=== PATIENT | male | born 1950 | race Caucasian/White ===

== ENCOUNTER → 2018-05-20 | Outpatient (CLI) | payer MEDICARE | END | disposition home or self-care (01) | LOC: CFH 07:37 | PROVIDERS: ATTEND Internal Medicine Cardiovascular Disease | DX: I25.10 Atherosclerotic heart disease of native coronary artery without angina pectoris (principal); I10 Essential (primary) hypertension; Z95.5 Presence of coronary angioplasty implant and graft; R94.31 Abnormal electrocardiogram [ECG] [EKG] | CPT/HCPCS: 78452; 93017; A9502 ==

== ENCOUNTER 2020-11-17 12:52 | Inpatient (IN) | payer MEDICARE ==
[~2020-11-17] VITALS: Ht 175.3 cm; Wt 81.7 kg
--- NOTE | 2020-11-17 13:32 | NUR ---
PT WITH SUBSTERNAL CP, RADIATES TO LEFT CHEST, TIGHTNESS OVER PAST COUPLE OF DAYS. ALL MONITORS PLACED, BP ELEVATED AT 198/114. DR ABRAHAM AT BEDSIDE. PT ASSESSMENT, POC DISCUSSED AND QUESTIONS ANSWERED.
[2020-11-17 13:52] LABS: BASOPHILS % (AUTO) 1 % (0-1); EOSINOPHILS % (AUTO) 2 % (1-7); LYMPHOCYTES % (AUTO) 25 % (22-44); MEAN CORPUSCULAR HEMOGLOBIN 33.7 pg (27.5-34.5); MEAN CORPUSCULAR HGB CONC 34.4 g/dL (33.2-36.2); MEAN PLATELET VOLUME 9.9 fL (7.4-10.4); MONOCYTES % (AUTO) 9 % (2-9); NEUTROPHILS % (AUTO) 64 % (42-75); PLATELET COUNT 191 x10^3/uL (130-400); RED BLOOD COUNT 4.91 x10^6/uL (4.38-5.82); RED CELL DISTRIBUTION WIDTH 14.1 % (9.4-14.8)
[2020-11-17] MEDS ORDERED: LABETALOL 5MG/ML, 20ML ONE (13:52)
[2020-11-17] MEDS ORDERED: MAALOX/HYOSCYAMINE/LIDOCAINE 45 ML BTL ONE (13:52)
[2020-11-17] MEDS ORDERED: SODIUM CHLORIDE FLUSH 10ML SYR IVF ONE (14:00)
[2020-11-17] MEDS ORDERED: MAALOX/HYOSCYAMINE/LIDOCAINE 45 ML BTL PO ONE (14:00)
[2020-11-17] MEDS ORDERED: LABETALOL 5MG/ML, 20ML IVPush ONE (14:00)
[2020-11-17 14:03] LABS: ALANINE AMINOTRANSFERASE 40 U/L (12-78); ALBUMIN 3.7 g/dL (3.4-5.0); ANION GAP 4 mmol/L (5-15); CALCIUM 8.7 mg/dL (8.5-10.1); CHLORIDE 105 mmol/L (98-107); CREATININE 1.34 mg/dL (0.7-1.3)
[2020-11-17 14:08] LABS: ALKALINE PHOSPHATASE 86 U/L (45-117); BILIRUBIN,TOTAL 0.7 mg/dL (0.2-1.0); TOTAL PROTEIN 7.5 g/dL (6.4-8.2); TROPONIN I 0.017 ng/mL (0.000-0.045)
--- NOTE | 2020-11-17 14:40 | NUR ---
ERP AT BS
[2020-11-17] MEDS ORDERED: NITROGLYCERIN OINT 2%, 1GM TP ONE ×2 (14:59→15:00)
--- NOTE | 2020-11-17 15:07 | NUR ---
PT TO BR WITH UPRIGHT STEADY GAIT, BACK TO ROOM W/O INCIDENCE. PT MEDICATED PER EMAR. NADN/VSS. CALL LIGHT WITHIN REACH. NO NEEDS AT THIS TIME
[2020-11-17] MEDS ORDERED: METO25TA35 PO (15:21)
[2020-11-17] MEDS ORDERED: ATOR-2 PO (15:21)
[2020-11-17] MEDS ORDERED: ASPI-963 PO (15:21)
[2020-11-17] MEDS ORDERED: ENAL5TAB10 PO (15:21)
[2020-11-17] MEDS ORDERED: AMLO2.5T5 PO (15:21)
[2020-11-17] MEDS ORDERED: EZET10TA70 PO (15:21)
[2020-11-17] MEDS ORDERED: ACETAMINOPHEN 325 MG TABLET PO PRN (15:30)
[2020-11-17] MEDS ORDERED: HEPARIN 5,000 UNITS/ML, 1ML SQ SCH (15:30)
[2020-11-17] MEDS ORDERED: ENALAPRILAT 1.25 MG/ML, 2ML IVPush PRN (15:30)
[2020-11-17] MEDS ORDERED: morphine SULFATE 10 MG/ML, 1ML IVPush PRN (15:30)
[2020-11-17] MEDS ORDERED: SODIUM CHLORIDE FLUSH 10ML SYR IVF PRN (15:30)
[2020-11-17] MEDS ORDERED: LABETALOL 5MG/ML, 20ML IVPush PRN (15:30)
[2020-11-17] MEDS ORDERED: ONDANSETRON 2MG/ML, 2ML IVPush PRN (15:30)
[2020-11-17] MEDS ORDERED: HEPARIN 5,000 UNITS/ML, 1ML ONE (15:34)
--- NOTE | 2020-11-17 15:48 | NUR ---
Pt to be admitted to [facility], room 513. Report called to IZABEL.
[2020-11-17 16:15] LABS: TROPONIN I 0.398 ng/mL (0.000-0.045)
[2020-11-17 16:32] VITALS: BP 142/84
[2020-11-17 16:50] VITALS: BP 142/84
[2020-11-17] MEDS ORDERED: HEPARIN 5,000 UNITS/ML, 1ML IV PRN (17:30)
[2020-11-17] MEDS ORDERED: HEPARIN 25,000 UNITS/250ML PMX 250 ML IV PRN (17:30)
[2020-11-17] MEDS ORDERED: HEPARIN 5,000 UNITS/ML, 1ML IV ONE (17:30)
[2020-11-17 20:46] VITALS: BP 115/65
[2020-11-17] MEDS: ATORVASTATIN 80 MG TABLET PO SCH (20:52)
[2020-11-18 01:28] VITALS: BP 98/59
[2020-11-18 06:50] LABS: BASOPHILS % (AUTO) 1 % (0-1); EOSINOPHILS % (AUTO) 1 % (1-7); LYMPHOCYTES % (AUTO) 21 % (22-44); MEAN CORPUSCULAR HEMOGLOBIN 33.6 pg (27.5-34.5); MEAN CORPUSCULAR HGB CONC 34.6 g/dL (33.2-36.2); MEAN PLATELET VOLUME 10.5 fL (7.4-10.4); MONOCYTES % (AUTO) 8 % (2-9); NEUTROPHILS % (AUTO) 70 % (42-75); PLATELET COUNT 146 x10^3/uL (130-400); RED CELL DISTRIBUTION WIDTH 14.2 % (9.4-14.8)
[2020-11-18 06:54] LABS: ALBUMIN 3.3 g/dL (3.4-5.0); ANION GAP 5 mmol/L (5-15); CALCIUM 8.3 mg/dL (8.5-10.1); CHLORIDE 108 mmol/L (98-107)
[2020-11-18 07:02] LABS: ALANINE AMINOTRANSFERASE 34 U/L (12-78); ALKALINE PHOSPHATASE 73 U/L (45-117); BILIRUBIN,TOTAL 0.9 mg/dL (0.2-1.0); CREATININE 0.79 mg/dL (0.7-1.3); TOTAL PROTEIN 6.2 g/dL (6.4-8.2)
[2020-11-18 08:15] VITALS: BP 116/63
[2020-11-18] MEDS ORDERED: SODIUM CHLORIDE 0.9% 1,000 ML IV SCH (09:00)
[2020-11-18] MEDS: EZETIMIBE 10 MG TABLET PO SCH (09:13)
[2020-11-18] MEDS: METOPROLOL TARTRATE 25 MG TAB PO SCH (09:13)
[2020-11-18] MEDS: AMLODIPINE 2.5 MG TABLET PO SCH (09:14)
[2020-11-18] MEDS: ENALAPRIL 5MG TABLET PO SCH (09:14)
[2020-11-18] MEDS: ASPIRIN 81 MG TABLET EC PO SCH (09:14)
[2020-11-18] MEDS ORDERED: MIDAZOLAM 1 MG/ML, 5ML ONE (11:42)
[2020-11-18] MEDS ORDERED: FENTANYL PF 100 MCG/2ML ONE ×2 (11:42→13:29)
[2020-11-18] MEDS ORDERED: LIDOCAINE 2%, 20ML ONE (11:43)
[2020-11-18] MEDS ORDERED: BIVALIRUDIN 250 MG ONE ×2 (11:43→12:45)
[2020-11-18] MEDS ORDERED: DIPHENHYDRAMINE 50 MG/ML, 1ML ONE (12:55)
[2020-11-18] MEDS ORDERED: PRASUGREL 10 MG TABLET ONE (13:40)
[2020-11-18] MEDS ORDERED: BIVALIRUDIN 250 MG in SODIUM CHLORIDE 0.9% 50 ML IV SCH (14:00)
[2020-11-18] MEDS: SODIUM CHLORIDE 0.9% 1,000 ML IV SCH ×2 (14:14→22:00)
[2020-11-18 14:30] VITALS: BP 138/78
[2020-11-18 19:36] VITALS: BP 120/71
[2020-11-18 21:00] VITALS: BP 126/75
[2020-11-18] MEDS: ATORVASTATIN 80 MG TABLET PO SCH (21:22)
[2020-11-19 00:13] VITALS: BP 121/73
[2020-11-19 04:36] LABS: BASOPHILS % (AUTO) 1 % (0-1); EOSINOPHILS % (AUTO) 2 % (1-7); LYMPHOCYTES % (AUTO) 20 % (22-44); MEAN CORPUSCULAR HGB CONC 34.5 g/dL (33.2-36.2); MEAN PLATELET VOLUME 10.2 fL (7.4-10.4); MONOCYTES % (AUTO) 8 % (2-9); NEUTROPHILS % (AUTO) 70 % (42-75); PLATELET COUNT 150 x10^3/uL (130-400); RED BLOOD COUNT 4.44 x10^6/uL (4.38-5.82); RED CELL DISTRIBUTION WIDTH 14.2 % (9.4-14.8)
[2020-11-19 04:45] LABS: ALANINE AMINOTRANSFERASE 33 U/L (12-78); ALBUMIN 3.2 g/dL (3.4-5.0); ANION GAP 4 mmol/L (5-15); CALCIUM 8.1 mg/dL (8.5-10.1); CHLORIDE 107 mmol/L (98-107); CREATININE 0.79 mg/dL (0.7-1.3)
[2020-11-19 04:47] LABS: ALKALINE PHOSPHATASE 88 U/L (45-117); BILIRUBIN,TOTAL 1.2 mg/dL (0.2-1.0); TOTAL PROTEIN 6.6 g/dL (6.4-8.2)
[2020-11-19 06:27] VITALS: BP 99/59
[2020-11-19 07:58] VITALS: BP 124/76
[2020-11-19] MEDS ORDERED: PRASUGREL 10 MG TABLET PO SCH (09:00)
[2020-11-19] MEDS: ENALAPRIL 5MG TABLET PO SCH (09:46)
[2020-11-19] MEDS: EZETIMIBE 10 MG TABLET PO SCH (09:46)
[2020-11-19] MEDS: AMLODIPINE 2.5 MG TABLET PO SCH (09:46)
[2020-11-19] MEDS: METOPROLOL TARTRATE 25 MG TAB PO SCH (09:46)
[2020-11-19] MEDS: ASPIRIN 81 MG TABLET EC PO SCH (09:46)
[2020-11-19] MEDS ORDERED: PRAS10TA4 PO (09:50)
== END 2020-11-19 12:45 | disposition short-term general hospital (02) | DRG 246 ==
LOC: ED 15:33 → INTOOBSV 15:44 → OBSVTOIN 15:44 → EDIP 15:44 → 5SO 16:08 → DCLOUNGE 11-19 12:39
PROVIDERS: ADMIT Hospitalist; ATTEND Hospitalist
PROC: 027136Z Dilation of Coronary Artery, Two Arteries with Three Drug-eluting Intraluminal Devices, Percutaneous Approach (ICD-10-PCS; principal; 2020-11-18)
PROC: B2181ZZ Fluoroscopy of Left Internal Mammary Bypass Graft using Low Osmolar Contrast (ICD-10-PCS; 2020-11-18)
PROC: 4A023N7 Measurement of Cardiac Sampling and Pressure, Left Heart, Percutaneous Approach (ICD-10-PCS; 2020-11-18)
PROC: B2111ZZ Fluoroscopy of Multiple Coronary Arteries using Low Osmolar Contrast (ICD-10-PCS; 2020-11-18)
PROC: B2131ZZ Fluoroscopy of Multiple Coronary Artery Bypass Grafts using Low Osmolar Contrast (ICD-10-PCS; 2020-11-18)
PROC: B2151ZZ Fluoroscopy of Left Heart using Low Osmolar Contrast (ICD-10-PCS; 2020-11-18)
DX: I21.4 Non-ST elevation (NSTEMI) myocardial infarction (principal); I50.31 Acute diastolic (congestive) heart failure; Q25.0 Patent ductus arteriosus; E78.5 Hyperlipidemia, unspecified; I11.0 Hypertensive heart disease with heart failure; I16.0 Hypertensive urgency; Z79.82 Long term (current) use of aspirin; Z87.891 Personal history of nicotine dependence; Z95.1 Presence of aortocoronary bypass graft; Z95.5 Presence of coronary angioplasty implant and graft
CPT/HCPCS: 36415; 71045; 80053; 84484; 85025; 85520; 93005; 93306; 93356; 93459; 96374; 99156; 99157; C1760; C1769; C1894; C9600; G0378; J0583; J1644; J2250; J3010; C1725; C1874; C1887; J1200; J7030; Q9967